=== PATIENT | female | born 1970 | race Caucasian/White ===

== ENCOUNTER → 2017-11-18 | Outpatient (CLI) | payer OTHER ==
[2017-11-18 12:28] LABS: BASO % 0.6 %; BASO ABS # 0.03 K/uL (0-0.2); EOS % 5.9 %; EOS ABS # 0.31 K/uL (0-0.5); HEMATOCRIT 43.4 % (37-47); HEMOGLOBIN 14.6 g/dL (12.0-16.0); IG# 0.01 K/uL (0.00-0.02); LYMPH % 22.9 %; MEAN CELL VOLUME 94.6 fL (80-100); MEAN CORPUSCULAR HEMOGLOBIN 31.8 pg (25-34); MEAN CORPUSCULAR HGB CONC 33.6 g/dl (32-36); MEAN PLATELET VOLUME 12.2 fL (7.4-10.4); MONO % 8.2 %; MONO ABS # 0.43 K/uL (0.11-0.59); NEUT % 62.2 %; NEUT ABS # 3.27 K/uL (1.4-6.5); PLATELET COUNT 260 K/uL (130-400); RED CELL DISTRIBUTION WIDTH CV 13.9 % (11.5-14.5); RED CELL DISTRIBUTION WIDTH SD 47.8 fL (36.4-46.3); WHITE BLOOD COUNT 5.25 K/uL (4.8-10.8)
[2017-11-18 15:09] LABS: ALT/SGPT 17 U/L (12-78); AST/SGOT 13 U/L (15-37); BLOOD UREA NITROGEN 13 mg/dl (7-18); CALCIUM 8.6 mg/dl (8.5-10.1); CARBON DIOXIDE 27 mmol/L (21-32); CREATININE 0.88 mg/dl (0.60-1.20); GLUCOSE 86 mg/dl (70-99); POTASSIUM 4.4 mmol/L (3.5-5.1); SODIUM 138 mmol/L (136-145)
[2017-11-18 15:19] LABS: ALKALINE PHOSPHATASE 44 U/L (45-117); TOTAL PROTEIN 7.3 gm/dl (6.4-8.2)
== END | disposition home or self-care (01) ==
LOC: C.LABPBG 08:59
PROVIDERS: ATTEND Family Medicine
DX: E03.9 Hypothyroidism, unspecified (principal); M79.89 Other specified soft tissue disorders; R53.83 Other fatigue; E55.9 Vitamin D deficiency, unspecified

== ENCOUNTER → 2017-12-29 | Outpatient (CLI) | payer OTHER | END | disposition home or self-care (01) | LOC: C.LAB1850 07:39 | PROVIDERS: ATTEND Family Medicine | DX: E03.9 Hypothyroidism, unspecified (principal) ==

== ENCOUNTER → 2018-02-14 | Outpatient (CLI) | payer OTHER ==
[2018-02-14 12:43] LABS: FOLLICLE STIMULAT HORMONE 7.79 IU/L
== END | disposition home or self-care (01) ==
LOC: C.LAB1850 09:58
PROVIDERS: ATTEND Obstetrics & Gynecology
DX: R23.2 Flushing (principal)

== ENCOUNTER 2021-12-31 05:54 | Observation (INO) ==
--- NOTE | 2021-12-22 10:47 | PAT Medication Instructions ---
Medication Instructions Date of Service December 22, 2021 Home Medications Medication Instructions Recorded hydroxyzine pamoate 25 mg capsule 25 mg PO TID PRN #10 cap 04/02/19 (Vistaril) meloxicam 15 mg tablet (Mobic) 15 mg PO DAILY PRN #30 tab 04/05/19 cholecalciferol (vitamin D3) 50 2,000 units PO BID #30 cap 05/29/19 mcg (2,000 unit) capsule fluticasone propionate 50 2 spray INTRANASAL DAILY #15.8 ml 11/09/21 mcg/actuation nasal spray,suspension (Flonase Allergy Relief) hydroxyzine pamoate 25 mg capsule (Vistaril) 25 mg PO TID PRN meloxicam 15 mg tablet (Mobic) 15 mg PO DAILY PRN cholecalciferol (vitamin D3) 50 mcg (2,000 unit) capsule 2,000 units PO BID clonazepam 0.5 mg tablet (Klonopin) 0.5 mg PO HS sertraline 100 mg tablet (Zoloft) 100 mg PO BID fluticasone propionate 50 mcg/actuation nasal spray,suspension (Flonase Allergy Relief) 2 spray INTRANASAL DAILY buspirone 15 mg tablet 15 mg PO TID levothyroxine 125 mcg tablet 125 mcg PO QAM oxcarbazepine 300 mg tablet (Trileptal) 300 mg PO BID ASK your surgeon for instructions meloxicam 15 mg tablet (Mobic) 15 mg PO DAILY PRN DO NOT take the morning of surgery cholecalciferol (vitamin D3) 50 mcg (2,000 unit) capsule 2,000 units PO BID Take morning of surgery With a small sip of water, OTHERWISE NOTHING TO EAT OR DRINK AFTER MIDNIGHT: hydroxyzine pamoate 25 mg capsule (Vistaril) 25 mg PO TID PRN(if needed) sertraline 100 mg tablet (Zoloft) 100 mg PO BID fluticasone propionate 50 mcg/actuation nasal spray,suspension (Flonase Allergy Relief) 2 spray INTRANASAL DAILY buspirone 15 mg tablet 15 mg PO TID levothyroxine 125 mcg tablet 125 mcg PO QAM oxcarbazepine 300 mg tablet (Trileptal) 300 mg PO BID Take evening before surgery hydroxyzine pamoate 25 mg capsule (Vistaril) 25 mg PO TID PRN(if needed) cholecalciferol (vitamin D3) 50 mcg (2,000 unit) capsule 2,000 units PO BID clonazepam 0.5 mg tablet (Klonopin) 0.5 mg PO HS sertraline 100 mg tablet (Zoloft) 100 mg PO BID fluticasone propionate 50 mcg/actuation nasal spray,suspension (Flonase Allergy Relief) 2 spray INTRANASAL DAILY buspirone 15 mg tablet 15 mg PO TID oxcarbazepine 300 mg tablet (Trileptal) 300 mg PO BID Other Notes If you have any questions please call us at [phone] or [phone] or [phone] or [phone]
--- NOTE | 2021-12-23 10:11 | Anesthesiology Consultation ---
Date of Service December 23, 2021 Assessment & Plan (1) Encounter for pre-operative examination: - check urine test am DOS. - Outpatient joint pathway: Per surgeon and patient, plan for outpatient joint program. Upon review of chart- patient is an acceptable candidate for Same Day Joint Program from anesthesia perspective pending perioperative course. Pending patient is motivated, has good support and surgeon's office completes Same Day Joint Program preop requirements- patient may proceed with outpatient JOON. - COVID screening: Per assessment on 12/23/2021: Travel screen negative, no known COVID-19 positive contacts or current COVID-19 related symptoms in past 2 weeks. Patient vaccinated. Surgeon arranging preop COVID testing, scheduled 12/29/2021. Awaiting results. Chart Review Chart Review: Acceptable Risk for Surgery and Patient seen in Pre Admission Testing Teaching & Discussion Pre-Anesthesia Teaching/Discussion Notes: Instructed NPO after midnight before surgery, except medications with 15 cc of water. Medication instructions provided according to the PAT guidelines. History Surgery Operation Date: 12/31/21 08:15 Proposed Procedures p OP: Right Total Hip Arthroplasty - Willie Dodge MD Height/Weight Height: 5 ft 4 in Weight: 68.4 kg Allergies Allergy/AdvReac Type Severity Reaction Status Date / Time sucralfate [From Carafate] Allergy Severe hives, lip Verified 12/21/21 15:27 swelling Sulfa (Sulfonamide Allergy Severe full body Verified 12/21/21 15:28 Antibiotics) hives morphine Allergy Intermediate facial Verified 12/21/21 15:29 flushing and rash Medications Home Medications Medication Instructions Recorded Confirmed Last Taken hydroxyzine pamoate 25 mg capsule 25 mg PO TID PRN #10 cap 04/02/19 12/21/21 Unknown (Vistaril) meloxicam 15 mg tablet (Mobic) 15 mg PO DAILY PRN #30 tab 04/05/19 12/21/21 Unknown cholecalciferol (vitamin D3) 50 2,000 units PO BID #30 cap 05/29/19 12/21/21 Unknown mcg (2,000 unit) capsule clonazepam 0.5 mg tablet (Klonopin) 0.5 mg PO HS tab 10/16/20 12/21/21 Unknown sertraline 100 mg tablet (Zoloft) 100 mg PO BID tab 01/13/21 12/21/21 Unknown fluticasone propionate 50 2 spray INTRANASAL DAILY #15.8 ml 11/09/21 12/21/21 Unknown mcg/actuation nasal spray,suspension (Flonase Allergy Relief) buspirone 15 mg tablet 15 mg PO TID 12/21/21 12/21/21 Unknown levothyroxine 125 mcg tablet 125 mcg PO QAM 12/21/21 12/21/21 Unknown oxcarbazepine 300 mg tablet 300 mg PO BID 12/21/21 12/21/21 Unknown (Trileptal) Past Medical History Medical History (Updated 12/23/21 @ 10:22 by Bridget Huff PA-C) ADHD (attention deficit hyperactivity disorder) Allergic rhinitis Anxiety and depression Genital herpes simplex type 1 infection History of anesthesia reaction "slow to wake up" denies re-intubation Hyperlipemia Hypothyroidism Osteoarthritis Patient denies h/o stroke, seizures, heart attack, heart failure, DM, HTN, blood clots or blood transfusions. Exercise / Class Metabolic Activity II 4-5 Yardwork/Stairs/Walk up hill (denies CP or SOB with 1 FOS) Past Family History Family History Father Hypertension Prostate cancer Mother Breast cancer Aunt Breast cancer Unknown Myocardial infarction Other Thyroid cancer Denies family history of Ovarian cancer Colorectal cancer Past Surgical History Surgical History History of dilatation and curettage History of esophagogastroduodenoscopy (EGD) History of partial hysterectomy d/t DUB, fibroids Past Anesthesia History No Family Hx of Anesthesia Complications History of PONV No Hx of PONV and No Hx of Motion Sickness Social History Smoking Status: Never smoker Do You Dip or Chew Tobacco: No Hx Alcohol Use: Yes Alcohol type: wine alcohol intake frequency: a few times a week Hx Substance Use: No substance use type: does not use Review of Systems Patient denies chest pain, shortness of breath, dyspnea on exertion, snoring, witnessed apneas, reflux, fever, chills, cough, wheezing, or palpitations. Physical Exam Vital Signs Vitals BP 113/71 P 62 TEMP 98.3 SP02 97% on RA RESP 17 Physical Full cervical extension range of motion without pain Full TMJ range of motion TMD 3.5 finger breaths Mallampati Score 3 Dentition: intact, denies missing, chipped or loose teeth, caps/crowns, implants or bridges Lungs: normal respiratory effort. Clear throughout to auscultation, no adventitious breath sounds Cardiac: regular rate and rhythm, no murmurs noted Carotid arteries: negative bruit bilat Extremities: no distal extremity edema Lab Results Anesthesia Preop Results Results Anesthesia Widget: WBC 5.66 K/uL (4.8-10.8) 12/23/21 Hgb 13.2 g/dL (12.0-16.0) 12/23/21 Hct 40.3 % (37-47) 12/23/21 Plt 256 K/uL (130-400) 12/23/21 Na 138 mmol/L (136-145) 12/23/21 K 4.0 mmol/L (3.5-5.1) 12/23/21 Cl 104 mmol/L (98-107) 12/23/21 CO2 28 mmol/L (21-32) 12/23/21 BUN 17 mg/dl (6-23) 12/23/21 Creat 0.71 mg/dl (0.6-1.2) 12/23/21 Glucose Level 80 mg/dl (70-99(Fasting)) 12/23/21 PT 10.3 Seconds (9.0-12.0) 12/23/21 PTT 25.0 Seconds (21.0-31.0) 12/23/21 INR 1.0 (0.9-1.1) 12/23/21 HA1c 5.2 % (4.5-5.6) 12/23/21 Urine Color Yellow 12/23/21 Urine Appearance Clear (Clear) 12/23/21 Urine pH 5.5 (4.5-7.5) 12/23/21 Urine Specific [place] 1.023 (1.000-1.030) 12/23/21 Urine Protein Negative (Negative) 12/23/21 Urine Glucose (UA) Negative (Negative) 12/23/21 Urine Ketones Trace (Negative) H 12/23/21 Urine Blood 1+ (Negative) H 12/23/21 Urine Nitrite Positive (Negative) A 12/23/21 Urine Bilirubin Negative (Negative) 12/23/21 Urine Urobilinogen Negative (Negative) 12/23/21 Urine Leukocyte Esterase Negative (Negative) 12/23/21 Urine WBC (Auto) 1-5 /hpf (0-5) 12/23/21 Urine RBC (Auto) 0-4 /hpf (0-4) 12/23/21 Urine Hyaline Casts (Auto) 1-5 /lpf (0-5) 12/23/21 Urine Epithelial Cells (Auto) 20-30 /lpf (0-5) H 12/23/21 Urine Bacteria (Auto) 4+ (Negative) H 12/23/21 Blood Type A Positive 12/23/21 Antibody Screen NEGATIVE 12/23/21 Lab Comments: Surgeon's office made aware of abnormal UA. Testing Electrocardiogram Date: 12/23/21 Sinus bradycardia, rate 56 bpm
--- NOTE | 2021-12-23 16:19 | History & Physical Report ---
Date of Service December 23, 2021 Assessment & Plan (1) Osteoarthritis of right hip joint due to dysplasia: Plan: PRE-OP Diagnosis: Right hip osteoarthritis; congenital hip dysplasia Planned Procedure: Right total hip arthroplasty Plan: Patient is scheduled to undergo this procedure at the [facility] following the outpatient joint pathway on December 31, 2021 Dr. Dodge. Risks complications of the procedure such as: Infection, bleeding, pain, scarring, nerve blood vessel damage, weakness, wound problems, stiffness, incomplete relief of symptoms, hardware failure, hardware loosening, wear, fracture, tendon or ligament injury, dislocation, leg length inequality, blood clots, embolism, heart attack, stroke and were explained to the patient at her visit with Dr. Dodge on December 18 and informed consent form the procedure was obtained. Patient also understands risks of proceeding with surgical intervention during the COVID-19 pandemic. Currently she is asymptomatic and understands that she will need to be tested prior to surgery. Patient is scheduled meet with anesthesia later this morning while there she will obtain a CBC with differential, complete metabolic panel, PT/INR, blood type and screen, urinalysis, urine culture and sensitivity, EKG, hemoglobin A1c and a nasal culture for MRSA. She states she is scheduled to meet with her primary care provider Dr. Cervantes this . During today's visit we disc ussed total hip precautions, reviewed the total hip packet, discussed lectures offered by [facility] in regards to joint replacement surgery via zoom. I sent prescriptions for oxycodone, Senokot, Zofran to her pharmacy today. She already has diclofenac sodium that she will use for postoperative pain inflammation relief. I also discussed DVT prophylaxis with baby aspirin twice daily for the first 30 days postoperatively. Patient states that she prefers to do her in-home physical therapy with [facility]. I provided her with orders to obtain a walker, raised toilet seat and shower chair and advised her to purchase a hip kit. Patient is scheduled to see me for 2-week postoperative follow-up on January 15 at 2:30 PM. At that visit we will provide her with an order for outpatient physical therapy as well as her rehab protocol. Patient verbalized understanding of all information provided during today's visit. She thanks for the care that she received. If she has questions or concerns that should arise prior to her surgery, she will contact clinic. History of Present Illness Chief Complaint: Chief Complaint: Right hip pain Primary Care Provider: Jackelyn Silva DO History of Present Illness (including history relevant to procedure): This 51-year-old female presents the clinic today for preoperative history and physical. Patient complains of right-sided hip pain for the past 5 to 6 years that has become progressively worse and is affecting her ability to ambulate and perform a specific activities of daily living. She experiences significant pain while navigating steps. Patient is failed all conservative measures including ultrasound-guided corticosteroid injections, physical therapy, the use of oral nonsteroidal agents and activity modification. Review Of Systems: A 12 point review of systems performed is unremarkable except for those things stated in the HPI past medical history. 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 She denies tobacco or illicit drug use Family history: Cancer Current Home Meds: (Last Updated 12/23 09:15) OXcarbazepine (OXcarbazepine 300 mg oral tablet) 300 mg PO bid busPIRone (busPIRone 15 mg oral tablet) cholecalciferol (Vitamin D3 2000 intl units oral capsule) 2 daily clonazePAM (KlonoPIN) cyanocobalamin (Vitamin B12) diclofenac topical (diclofenac 1% topical gel) 1 appl topical qid PRN: Pain not to exceed 16 grams/day/single joint of lower extremities diclofenac (diclofenac sodium 75 mg oral delayed release tablet) TAKE 1 TABLET BY MOUTH TWICE A DAY NEEDED FOR PAIN WITH FOOD hydrOXYzine (hydrOXYzine hydrochloride 25 mg oral tablet) levothyroxine (levothyroxine 125 mcg (0.125 mg) oral tablet) 125 mcg PO Daily loratadine (Claritin) ondansetron (Zofran 4 mg oral tablet) 4 mg PO q8h oxyCODONE (oxyCODONE 5 mg oral tablet) 10 mg PO q4h Initial RxPost op pain control senna (Senokot 8.6 mg oral tablet) 8.6 mg PO Daily PRN: as needed for constipation with plenty of water sertraline (Zoloft) Allergies Allergy/AdvReac Type Severity Reaction Status Date / Time sucralfate [From Carafate] Allergy Severe hives, lip Verified 12/21/21 15:27 swelling Sulfa (Sulfonamide Allergy Severe full body Verified 12/21/21 15:28 Antibiotics) hives morphine Allergy Intermediate facial Verified 12/21/21 15:29 flushing and rash Home Medications Medication Instructions Recorded Confirmed Type hydroxyzine pamoate 25 mg capsule 25 mg PO TID PRN #10 cap 04/02/19 12/21/21 Rx (Vistaril) meloxicam 15 mg tablet (Mobic) 15 mg PO DAILY PRN #30 tab 04/05/19 12/21/21 Rx cholecalciferol (vitamin D3) 50 2,000 units PO BID #30 cap 05/29/19 12/21/21 Rx mcg (2,000 unit) capsule clonazepam 0.5 mg tablet (Klonopin) 0.5 mg PO HS tab 10/16/20 12/21/21 History sertraline 100 mg tablet (Zoloft) 100 mg PO BID tab 01/13/21 12/21/21 History fluticasone propionate 50 2 spray INTRANASAL DAILY #15.8 ml 11/09/21 12/21/21 Rx mcg/actuation nasal spray,suspension (Flonase Allergy Relief) buspirone 15 mg tablet 15 mg PO TID 12/21/21 12/21/21 History levothyroxine 125 mcg tablet 125 mcg PO QAM 12/21/21 12/21/21 History oxcarbazepine 300 mg tablet 300 mg PO BID 12/21/21 12/21/21 History (Trileptal) Past Med/Surg History Medical History ADHD (attention deficit hyperactivity disorder) Allergic rhinitis Anxiety and depression Genital herpes simplex type 1 infection History of anesthesia reaction "slow to wake up" denies re-intubation Hyperlipemia Hypothyroidism Osteoarthritis Surgical History History of dilatation and curettage History of esophagogastroduodenoscopy (EGD) History of partial hysterectomy d/t DUB, fibroids Family History Father Hypertension Prostate cancer Mother Breast cancer Aunt Breast cancer Unknown Myocardial infarction Other Thyroid cancer Denies family history of Ovarian cancer Colorectal cancer Social History Smoking Status: Never smoker Second Hand Exposure: Yes; Hx Alcohol Use: Yes Alcohol type: wine Alcohol Intake Frequency Comment: 2 GLASSES Hx Substance Use: No Preferred Language: Togolese Communication Ability: Effective Visual Impairment: No Limitations Hearing Ability: Normal Master Certified Rv Technician Required: No Beliefs That Will Affect Care: None marital status: Current Living Situation: Alone current occupational status: employed 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 How many Children do You have: 2 How many Children do You have Comment: 2 sons Feels Safe at Home: Yes Childhood Exposure to Second-Hand Smoke: Yes Dental Care, Regularly: Yes Physical Activity Frequency: 3-4 Times per Week Seatbelt Use: always Sunscreen Use: Yes Assistive Devices: Glasses Review of Systems All systems reviewed & are unremarkable except as noted in Subjective Physical Exam Physical Exam: Physical Exam: (relevant to the procedure, including heart and lung evaluation) General: Alert and oriented x3 with proper grooming and hygiene Eyes: Pupils are equal reactive to light with accommodation. Extraocular movements are intact Throat: Deferred due to COVID-19 precautions Cardiac: Regular rate and rhythm with no murmurs or gallops appreciated Lungs: Clear to auscultation throughout no wheezing, rales or rhonchi Abdomen: Nonobese, nondistended, nontender with NABS Extremities: Right hip; logroll test positive. Stinchfield test positive. Scour impingement test positive. Straight leg raise test positive. Lection is limited to 100 degrees, external rotation 35 and internal rotation of 5 degrees. Patient is neurovascular intact in her right lower extremity but does walk with a slight antalgic gait Neuro: Radial nerves II through XII intact no motor or sensory deficit Skin: Normal in appearance with no open skin areas or discharge Results & Data ([facility]) Diagnostic Findings Studies (relevant to the procedure): X-rays done today, personally interpreted by me include AP pelvis, false-profile, and cross-table lateral views of the right hip. These are compared with her prior films done back in January of 2020. There has been interval narrowing of the superolateral joint space, now near [id number].
[2021-12-31] MEDS ORDERED: ACETAMINOPHEN 500 MG TAB PO SCH (06:00)
[2021-12-31] MEDS ORDERED: dexAMETHasone 4 MG TAB PO SCH (06:00)
[2021-12-31] MEDS ORDERED: TRANEXAMIC ACID 1,000 MG **IV Pre-op IV SCH (06:00)
[2021-12-31] MEDS ORDERED: LR 60ML/HR IV SCH (06:00)
[2021-12-31] MEDS ORDERED: TRANEXAMIC ACID 1,000 MG **IV Intra-op IV SCH (06:00)
[2021-12-31] MEDS ORDERED: FAMOTIDINE 20 MG TAB PO SCH (06:00)
[2021-12-31] MEDS ORDERED: Scopolamine 1 MG TDSY TD SCH (06:00)
[2021-12-31] MEDS ORDERED: ceFAZolin 2000MG 2,000 MG/15 ML SYR IV SCH (06:00)
[2021-12-31] MEDS ORDERED: traMADol HCL 50 MG TABLET PO SCH (06:00)
[2021-12-31] MEDS ORDERED: ROPIVACAINE 0.5% HCL/PF 150 MG, BUPIVACAINE 0.75% MPF 20 ML, EPINEPHrine 0.15 MG, Ketor... INFIL SCH (06:00)
[2021-12-31] MEDS ORDERED: ROPIVACAINE 0.5% 5 MG/ML 30 ML VIAL ONE (06:27)
[2021-12-31] MEDS ORDERED: LIDOCAINE 2%/EPINEPHRINE 1:200,000 20 ML SDV ONE (06:27)
--- NOTE | 2021-12-31 07:56 | History & Physical Bridge Note ---
Date of Service December 31, 2021 History & Physical Bridge Note I have examined the patient, reviewed the History & Physical and in the interval since the performance of the History & Physical I have noted the following changes of clinical significance: no changes noted
[2021-12-31] MEDS ORDERED: ORTHO JOINT ANESTHETIC ONE (08:14)
[2021-12-31] MEDS ORDERED: MIDAZOLAM HCL 1 MG/ML 2ML VIAL ONE ×2 (08:35→09:10)
[2021-12-31] MEDS ORDERED: fentaNYL citrate 100 MCG/2 ML VIAL ONE (08:36)
[2021-12-31] MEDS ORDERED: ePHEDrine sulfate 50 MG/ML AMP IV PRN (08:48)
[2021-12-31] MEDS ORDERED: ONDANSETRON INJ 2 MG/ML 2 ML VIAL IV PRN ×2 (08:48→12:56)
[2021-12-31] MEDS ORDERED: fentaNYL citrate 100 MCG/2 ML VIAL IV PRN (08:48)
[2021-12-31] MEDS ORDERED: ATROPINE SULFATE 0.1 MG/ML 10ML SYR IV PRN (08:48)
[2021-12-31] MEDS ORDERED: BUPIVACAINE 0.5 % 5 MG/1 ML PF 10ML VIAL ONE (09:04)
[2021-12-31] MEDS ORDERED: PROPOFOL IV EMULSION 10 MG/ML 20 ML VIAL IV ONE ×2 (09:38→10:31)
[2021-12-31] MEDS ORDERED: GLYCOPYRROLATE 0.2 MG/ML VIAL ONE (11:20)
--- NOTE | 2021-12-31 11:29 | Operative Report ---
Post Operative Report Pre & Post Diagnosis Operation Date: 12/31/21 08:15 Pre-Op Diagnosis: Right Hip Osteoarthritis Post-Op Diagnosis: Right Hip Osteoarthritis, Proximal Femur Fracture I identified the patient and participated in the time-out.: Yes Procedure Operation Date: 12/31/21 08:15 Actual Procedures p Right Total Hip Arthroplasty(Right) - Willie Dodge MD p Open Reduction Internal Fixation with Cables, Proximal Femur Fracture(Right) - Willie Dodge MD Surgeon P Echo DELGADILLO Parole Supervisor Mel VIRK Estimated Blood Loss 150 Findings Consistent with Post-Op Diagnosis see operative report Specimens see operative report Drains none Complications none Disposition Accompanied Patient To Recovery: Yes Indications This 51-year-old female presented to the office with complaints of persisting right hip pain. She had tried conservative care measures without improvement. She elected to proceed with surgical intervention after being educated about potential risks and outcomes. Preoperative imaging was obtained. Description of Procedure Patient was administered a spinal anesthetic and then taken to the operating becki m where she was given sedation. She was prepped and draped in the usual sterile fashion. Please see Dr. Dodge's operative report for specifics of the procedure. I was present for the entire case from initial patient positioning through final wound closure. Assistance was provided in tissue retraction, hemostasis, trial implant placement, final implant placement, and final wound closure. Patient was taken to the recovery room in satisfactory condition. I attest to the content of the Intraoperative Record and any orders documented therein. Any exceptions are noted below.
--- NOTE | 2021-12-31 11:39 | Operative Report ---
Post Operative Report Pre & Post Diagnosis Operation Date: 12/31/21 08:15 Pre-Op Diagnosis: Right Hip Osteoarthritis, Developmental Dyplasia of the Hip Post-Op Diagnosis: Right Hip Osteoarthritis, Developmental Dyplasia of the Hip, Proximal Femur Fracture I identified the patient and participated in the time-out.: Yes Procedure Operation Date: 12/31/21 08:15 Actual Procedures p Right Total Hip Arthroplasty(Right) 22 modifier should be added to the case due to increased complexity from her developmental dysplasia of the hip p Open Reduction Internal Fixation with Cables, Proximal Femur Fracture(Right) - Willie Dodge MD Surgeon Willie Dodge MD Meat Passer Yrn Leal PA-C. No resident or fellow was available to assist. Estimated Blood Loss 150 Findings See Below Total hip arthroplasty was performed through posterior approach. She had abnormal anatomy of her proximal femur with coxa valga. Acetabulum was quite shallow and retroverted consistent with a dysplastic hip. While broaching the femur with the smallest of femoral component patient sustained a small intraoperative fracture of the calcar. 2 Dall-Miles cables were placed and the surgery proceeded from there without incident. Specimens Right femoral head. Complications While broaching the femur with the smallest of femoral component patient sustained a small intraoperative fracture of the calcar. 2 Dall-Miles cables were placed and the surgery proceeded from there without incident. Indications 51-year-old female with right hip osteoarthritis in the setting of developmental dysplasia of the hip refractory to conservative management. X-rays demonstrate [id number] disease. I had a long discussion with her about the risks and benefits of surgery, alternatives, and expected outcomes. She understood that due to her abnormal anatomy she is at increased risk for complications. Also due to her young age she is at risk for needing a revision surgery due to wear. After reviewing all the risks and benefits surgery she elected to proceed. All questions were answered. Informed consent was signed. Description of Procedure Patient was identified in the preoperative holding area where her surgical site was marked. She was given epidural by anesthesia and brought back to main operating room for was moved on the operating table and rolled up carefully in the lateral decubitus position. Axillary roll was placed. All bony prominences were padded. Assessment of leg lengths was performed. She was about 1 cm short on the right compared with the left. All bony prominences were padded. Perioperative antibiotics were administered. She was prepped and draped in the usual sterile fashion. Prior to incision a multidisciplinary timeout was called. All in the room in agreement. We began by making a 16 cm long incision for a posterior approach of the hip. I dissected down the subcutaneous tissues to the level of the fascia. The fascia was incised in line with the incision. Charnley bow was placed. Trochanteric bursa and fat were was reflected off of the piriformis and short external rotators. Upper border of the quadratus femoris was released. The piriformis and short external rotators were then dissected off the posterior aspect of the hip along with capsule. Hip was then dislocated. Abnormal anatomy of coxa valga was noted to the proximal femur. We made our femoral neck cut a pproximately 8 mm above the lesser trochanter as was our preoperative plan. The acetabulum was then exposed. Inspection of the acetabulum demonstrated the patient to have shallow acetabulum and retroversion consistent with a dysplastic hip. Contents of the cotyloid fossa were removed with electrocautery. I then started with a 42 mm reamer. I medialized her acetabulum significantly down to the quadrilateral plate in order to deepen her socket as I sequentially reamed up to a size 50 mm cup. We now had a more normal depth acetabulum with circumferential bleeding cancellous bone. The acetabulum was irrigated out and a 50 mm [place] wound care technician wang cup was then impacted down into position with approximately 20 degrees of anteversion and 40 degrees of lateral opening. Osteophytes along the anterior acetabular wall were removed. A +4 trial liner for a 32 mm femoral head was placed in order to increase her leg length so it would be symmetric with the other side. Next we turned our attention towards the femur. The box osteotome was used to remove the lateral neck. The intramedullary guide was placed. I did get somewhat tight towards the distal aspect. I then started broaching with the size 8 Corail broach. This is the smallest size Corail stem. On her preoperative plan this appeared to have good fit. However as we are tapping the broach down she was noted to have a small crack developed along the medial calcar. Upon further inspection we were able to visualize that the crack was actually a small U-shaped fracture of the medial aspect of the calcar that did not appear to extend distally. However due to concern for microscopic, nonvisible crack extending distally, I elected to switch to a Larimer stem in order to get more distal fixation and bypass this calcar fracture. We opened up the 01 reamer and reamed the intramedullary canal. We then broached with the size 1 Larimer broach which is the smallest sized implant This is also a little bit tight and was starting to gap the crack. Therefore the broach was removed and cancellous bone from the proximal femur was removed with a rattail as well as a curette. In order to prevent further crack propagation I placed a single Dall-Safeway Safety Step cable above the lesser trochanter tightened down to approximately 100 pounds of torque. The cables then cramped. I was unable to place the size 1 Larimer broach down and not gap the fracture. It sat about 5 mm above the femoral neck cut which we had also templated to be acceptable leg length. A high offset neck and a +1.5 mm offset 32 mm femoral head was initially used. We checked our center of the head to a lesser trochanter distance and it was just slightly short. Hip was reduced and she had partial correction of her leg lengths. Still was just a couple millimeters short however. She had a good stability exam with no impingement in extension and external rotation. With the hip flexed up to 90 degrees she could be internally rotated approximately 50 degrees before levering out of the acetabulum. We then brought in x-ray to check the proximal femur. A single AP x-ray was done and demonstrated that the cable was in appropriate position. The fracture line was not visible on the x- ray. I was happy with the position of the acetabulum as well as the size of the femoral broach. At this point the femoral broach was removed and the trial acetabular liner was removed. The real size 50 out of millimeter diameter and 32 mm inner diameter +4 Ultrex polyethylene acetabular liner was opened up and impacted down into the acetabulum. We checked the locking mechanism and it had engaged appropriately. Next the proximal femur was reexposed. Out of abundance of caution I elected to place a second cable just below the lesser trochanter. This was done without difficulty. Again it was tensioned approximately 100 pounds of torque crimped and then cut. The real size 1 Larimer stem with a high offset was opened up and impacted down into position. It sat at the same level as the broach. In order to restore leg lengths I then trialed with a +5 femoral head. She now had symmetric leg lengths. Her stability exam was similar to previously which I was very happy with. Therefore the hip was dislocated the femoral head trial was removed and the real size 32 mm ceramic femoral head with a +5 offset was opened up and tapped down of the trunnion. Hip was atraumatically reduced. We then began to close. Wound was irrigated out with copious amounts of dilute Betadine solution followed by normal saline. The periarticular injection cocktail was then placed. Piriformis short external rotators as well as a posterior capsular flap was repaired with #2 Vicryl through bone tunnels in the posterior aspect of the greater trochanter. Fascia was run with dilute #1 PDS suture. Subcutaneous layer was closed with #1 PDS. Deep dermal layer was closed with 2-0 Vicryl in running fashion. Skin was closed with Dermabond and Zipline. Silverlon dressin g was placed. Patient's sedation was then lifted, she was rolled supine and transferred to the hospital bed, and transferred to the recovery room in stable condition. Postoperative course: Patient will be admitted overnight for pain control and monitoring. Postoperative x-rays will be obtained. She will be toe-touch weightbearing initially after surgery. Aspirin for DVT prophylaxis. Posterior hip precautions. I attest to the content of the Intraoperative Record and any orders documented therein. Any exceptions are noted below.
--- NOTE | 2021-12-31 11:44 | XRay Report ---
XR hip RT 1V CLINICAL HISTORY: PT LAT RT SIDE UP/DR WANTS 1VW PELVIS/1VW HIP W/STEM IN OR 7. COMPARISON STUDY: 12/23/2021 TECHNIQUE: Single intraoperative film of the right hip FINDINGS: The patient is status post right hip surgery with a metallic femoral template in place. Uli tabular component is present along with a cerclage wire surrounding the proximal femoral shaft. IMPRESSION: 1. Single intraoperative film with right femoral prosthesis template in place. ACT 112: Negative or not required by law. Electronically signed by: Jericho Gutierrez M.D. 12/31/2021 11:43 AM
--- NOTE | 2021-12-31 12:13 | Anesthesiology Progress Note ---
Date of Service December 31, 2021 Anesthesia Post Procedure Vital Signs Vital Signs: Temp Pulse Pulse Resp BP Pulse Ox 12/31/21 12:00 59 L 20 108/58 L 96 12/31/21 11:50 59 L 17 103/59 L 100 12/31/21 11:40 61 17 112/58 L 100 12/31/21 11:30 57 L 17 107/53 L 100 12/31/21 11:24 98.1 F 55 L 11 L 111/62 98 12/31/21 06:34 98.2 F 65 18 141/45 H 99 Transfer of Care Handoff Completed per policy Notes Mental Status: alert / awake / arousable and participated in evaluation Patient Amnestic to Procedure: Yes Nausea / Vomiting: adequately controlled Pain: adequately controlled Airway Patency, RR, SpO2: stable & adequate BP & HR: stable & adequate Hydration State: stable & adequate Neuraxial Anesthesia: was administered and sensory block is resolving Anesthetic Complications: no major complications apparent and Pt Satisfied with anesthetic care
--- NOTE | 2021-12-31 12:26 | XRay Report ---
XR pelvis 1-2V routine CLINICAL HISTORY: post op R total hip COMPARISON: Pelvis radiograph December 23, 2021. FINDINGS: Alignment of the right hip arthroplasty is anatomic. No periprosthetic fracture is identif ied. Acetabular screw is noted. There are 2 cerclage wires. No unexpected radiopaque foreign bodies. IMPRESSION: Expected findings following total right hip arthroplasty. ACT 112: Negative or not required by law. Electronically signed by: Jaciel Bobo M.D. 12/31/2021 12:25 PM
[2021-12-31] MEDS ORDERED: SODIUM CHLORIDE 0.9% 1000ML 1,000 ML IV SCH (12:56)
[2021-12-31] MEDS ORDERED: hydrOXYzine HCl 25 MG TAB PO PRN (12:56)
[2021-12-31] MEDS ORDERED: oxyCODONE HCL IR 5 MG TAB (IMMEDIATE RELEASE) PO PRN (12:56)
[2021-12-31] MEDS ORDERED: HYDROmorphone INJ 0.5 MG/0.5 ML SYR IV PRN (12:56)
[2021-12-31] MEDS ORDERED: bisacodyL 10 MG SUPP PR PRN (12:56)
[2021-12-31] MEDS ORDERED: clonazePAM 0.5 MG TAB PO PRN (12:56)
[2021-12-31] MEDS ORDERED: NALOXONE HCL 0.4 MG/1 ML VIAL/CARP IV PRN (12:56)
[2021-12-31] MEDS ORDERED: MAGNESIUM HYDROXIDE SUSP 30 ML UDC PO PRN (12:56)
[2021-12-31] MEDS ORDERED: diphenhydrAMINE 50 MG/ML VIAL IV PRN (12:56)
[2021-12-31] MEDS: busPIRone 15 MG TAB PO SCH ×2 (14:53→20:55)
[2021-12-31] MEDS: ACETAMINOPHEN 500 MG TAB PO SCH ×2 (14:53→20:55)
[2021-12-31] MEDS: KETOROLAC 30 MG/ML VIAL IV SCH ×2 (14:54→20:18)
[2021-12-31] MEDS ORDERED: Scopolamine CHECK PATCH PLACEMENT SCH (16:00)
[2021-12-31] MEDS: ceFAZolin 2000MG 2,000 MG/15 ML SYR IV SCH (18:19)
[2021-12-31] MEDS: FERROUS GLUCONATE 324 MG TAB PO SCH (18:19)
[2021-12-31] MEDS: ASCORBIC ACID 500 MG TAB PO SCH (18:19)
[2021-12-31] MEDS: OXcarbazepine 150 MG TABLET PO SCH (20:55)
[2021-12-31] MEDS: ASPIRIN 325 MG ECTAB PO SCH (20:56)
[2021-12-31] MEDS: DOCUSATE SODIUM 100 MG CAP PO SCH (20:56)
[2021-12-31] MEDS: SERTRALINE HCL 100 MG TABLET PO SCH (20:56)
[2021-12-31] MEDS ORDERED: SENNA 8.6 MG TAB PO SCH (21:00)
[2022-01-01] MEDS: KETOROLAC 30 MG/ML VIAL IV SCH ×2 (02:32→09:30)
[2022-01-01] MEDS: ceFAZolin 2000MG 2,000 MG/15 ML SYR IV SCH (02:32)
[2022-01-01] MEDS: ACETAMINOPHEN 500 MG TAB PO SCH ×2 (06:03→13:25)
[2022-01-01] MEDS ORDERED: LEVOTHYROXINE SODIUM 125 MCG TABLET PO SCH (06:30)
[2022-01-01 06:52] LABS: Eosinophils # (auto) 0.01 K/uL (0-0.5); Eosinophils % (auto) 0.1 %; Hematocrit (blood only) 28.6 % (37-47); Hemoglobin 9.6 g/dL (12.0-16.0); Immature Granulocytes # (auto) 0.02 K/uL (0.00-0.02); Immature Granulocytes % (auto) 0.2 %; Lymphocytes # (auto) 0.97 K/uL (1.2-3.4); Lymphocytes % (auto) 10.9 %; Mean Corpuscular Hemoglobin 31.5 pg (25-34); Mean Corpuscular Hgb Conc 33.6 g/dL (32-36); Mean Corpuscular Volume 93.8 fL (80-100); Mean Platelet Volume 11.2 fL (7.4-10.4); Monocytes # (auto) 0.88 K/uL (0.11-0.59); Monocytes % (auto) 9.9 %; Neutrophils # (auto) 7.03 K/uL (1.4-6.5); Neutrophils % (auto) 78.9 %; Platelet Count 221 K/uL (130-400); RDW Coefficient of Variation 14.1 % (11.5-14.5); RDW Standard Deviation 48.9 fL (36.4-46.3); Red Blood Count 3.05 M/uL (4.2-5.4); White Blood Count 8.91 K/uL (4.8-10.8)
[2022-01-01 07:23] LABS: BUN Creatinine Ratio 25.3 (10-20); Calcium 7.5 mg/dl (8.5-10.1); Creatinine Clr Calc Pharmacy 87.1 ml/min; Est GFR (African American) 108.5 ml/min; Est GFR (Non-African American) 93.6 ml/min; Potassium 3.8 mmol/L (3.5-5.1)
[2022-01-01] MEDS ORDERED: dexAMETHasone 10 MG in SYRINGE 0 ML IV SCH (08:00)
[2022-01-01] MEDS: FERROUS GLUCONATE 324 MG TAB PO SCH (08:31)
[2022-01-01] MEDS: ASCORBIC ACID 500 MG TAB PO SCH (08:32)
[2022-01-01] MEDS: OXcarbazepine 150 MG TABLET PO SCH (08:32)
[2022-01-01] MEDS: busPIRone 15 MG TAB PO SCH ×2 (08:33→13:25)
[2022-01-01] MEDS: SERTRALINE HCL 100 MG TABLET PO SCH (08:33)
[2022-01-01] MEDS: ASPIRIN 325 MG ECTAB PO SCH (08:34)
[2022-01-01] MEDS: DOCUSATE SODIUM 100 MG CAP PO SCH (08:34)
[2022-01-01] MEDS ORDERED: FLUTICASONE PROPIONATE NA SPR 16 GM BTL NAE SCH (09:00)
[2022-01-01] MEDS ORDERED: MULTIVITAMIN TAB PO SCH (09:00)
--- NOTE | 2022-01-01 10:35 | Orthopedic Progress Note ---
Date of Service January 01, 2022 Assessment & Plan (1) S/P total hip arthroplasty: (2) Fracture, proximal femur: Plan: PT/OT Touchdown weightbearing x6 weeks Keep Silverlon dressing intact Pain control with p.o. medication DVT prophylaxis with 81 mg aspirin twice daily and FILIBERTO stockings Ice with easy wrap Total hip precautions Patient will most likely need some form of inpatient rehab due to her living situation and her inability to transition without two-person assistance. A consult was placed for case management to evaluate the patient and get her established at an inpatient rehab facility. Patient is scheduled to follow-up at [facility] orthopedics in 2 weeks. With questions please contact the clinic at [phone] Admission and Anticipated Discharge Date Admission Date: December 31, 2021 Subjective This 51-year-old female is day 1 status post right total hip arthroplasty and open reduction internal fixation for a proximal femur fracture. Patient is doing fairly well this morning. She states her pain is well controlled with p.o. pain medication. She states that she has great difficulty using the walker and required 2 person assistance to transition from her bed to the chair. Patient is concerned because she lives alone in an apartment that requires her to ascend 13 stairs. Otherwise, she denies chest pain, shortness of breath, fever, chills, sweats, lethargy, numbness or tingling in her right lower extremity. She also denies nausea, vomiting or diarrhea and states she has been able to void without issue. Review of Systems Review of Systems: All systems reviewed & are unremarkable except as noted in Subjective Physical Exam Physical Exam: Right hip: Silverlon dressing is clean dry and intact. Patient has significant difficulty performing active straight leg raise test due to the pain that she experiences over the IT band. Passive straight leg raise test causes no pain. Patient is able to actively dorsi and plantarflex her foot without difficulty. She experiences slight tension with very light passive internal and external hip rotation. Quad strength is 2 of 5. Patient is neurovascular intact in right lower extremity. Results & Data ([facility]) Vital Signs (Past 12 Hours) Vital Signs Temp Pulse Resp BP Pulse Ox 01/01/22 07:22 37.0 C 74 18 109/68 99 01/01/22 02:29 36.9 C 62 16 97/59 L 99 Diagnostic Findings Laboratory Results WBC 8.91 K/uL (4.8-10.8) 01/01/22 06:27 RBC 3.05 M/uL (4.2-5.4) L 01/01/22 06:27 Hgb 9.6 g/dL (12.0-16.0) L 01/01/22 06:27 Hct 28.6 % (37-47) L 01/01/22 06:27 MCV 93.8 fL (80-100) 01/01/22 06:27 MCH 31.5 pg (25-34) 01/01/22 06:27 MCHC 33.6 g/dL (32-36) 01/01/22 06:27 RDW Std Deviation 48.9 fL (36.4-46.3) H 01/01/22 06:27 RDW Coeff of Carlos Eduardo 14.1 % (11.5-14.5) 01/01/22 06:27 Plt Count 221 K/uL (130-400) 01/01/22 06:27 MPV 11.2 fL (7.4-10.4) H 01/01/22 06:27 Immature Gran % (Auto) 0.2 % 01/01/22 06:27 Neut % (Auto) 78.9 % 01/01/22 06:27 Lymph % (Auto) 10.9 % 01/01/22 06:27 Piute % (Auto) 9.9 % 01/01/22 06:27 Eos % (Auto) 0.1 % 01/01/22 06:27 Baso % (Auto) 0.0 % 01/01/22 06:27 Neut # (Auto) 7.03 K/uL (1.4-6.5) H 01/01/22 06:27 Lymph # (Auto) 0.97 K/uL (1.2-3.4) L 01/01/22 06:27 Piute # (Auto) 0.88 K/uL (0.11-0.59) H 01/01/22 06:27 Eos # (Auto) 0.01 K/uL (0-0.5) 01/01/22 06:27 Baso # (Auto) 0.00 K/uL (0-0.2) 01/01/22 06:27 Immature Gran # (Auto) 0.02 K/uL (0.00-0.02) 01/01/22 06:27 Sodium 136 mmol/L (136-145) 01/01/22 06:27 Potassium 3.8 mmol/L (3.5-5.1) 01/01/22 06:27 Chloride 106 mmol/L (98-107) 01/01/22 06:27 Carbon Dioxide 26 mmol/L (21-32) 01/01/22 06:27 Anion Gap 4 (3-11) 01/01/22 06:27 BUN 19 mg/dl (6-23) 01/01/22 06:27 Creatinine 0.75 mg/dl (0.6-1.2) 01/01/22 06:27 Est Cr Clr Drug Dosing 87.1 ml/min 01/01/22 06:27 Est GFR ( Amer) 108.5 ml/min 01/01/22 06:27 Est GFR (Non-Af Amer) 93.6 ml/min 01/01/22 06:27 BUN/Creatinine Ratio 25.3 (10-20) H 01/01/22 06:27 Glucose 103 mg/dl (70-99(Fasting)) H 01/01/22 06:27 Calcium 7.5 mg/dl (8.5-10.1) L 01/01/22 06:27 POC Ur Test NEG (NEG) 12/30/21 06:20 Impressions Hip X-Ray 12/31/21 08:15 XR hip RT 1V CLINICAL HISTORY: PT LAT RT SIDE UP/DR WANTS 1VW PELVIS/1VW HIP W/STEM IN OR 7. COMPARISON STUDY: 12/23/2021 TECHNIQUE: Single intraoperative film of the right hip FINDINGS: The patient is status post right hip surgery with a metallic femoral template in place. Acetabular component is present along with a cerclage wire surrounding the proximal femoral shaft. IMPRESSION: 1. Single intraoperative film with right femoral prosthesis template in place. ACT 112: Negative or not required by law. Electronically signed by: Jericho Gutierrez M.D. 12/31/2021 11:43 AM Pelvis X-Ray 12/31/21 11:45 XR pelvis 1-2V routine CLINICAL HISTORY: post op R total hip COMPARISON: Pelvis radiograph December 23, 2021. FINDINGS: Alignment of the right hip arthroplasty is anatomic. No periprosthetic fracture is identified. Acetabular screw is noted. There are 2 cerclage wires. No unexpected radiopaque foreign bodies. IMPRESSION: Expected findings following total right hip arthroplasty. ACT 112: Negative or not required by law. Electronically signed by: Jaciel Bobo M.D. 12/31/2021 12:25 PM
--- NOTE | 2022-01-01 12:44 | Discharge Summary ---
Date of Service January 01, 2022 Admission HPI Per Admitting Provider History of Present Illness (including history relevant to procedure): This 51-year-old female presents the clinic today for preoperative history and physical. Patient complains of right-sided hip pain for the past 5 to 6 years that has become progressively worse and is affecting her ability to ambulate and perform a specific activities of daily living. She experiences significant pain while navigating steps. Patient is failed all conservative measures including ultrasound-guided corticosteroid injections, physical therapy, the use of oral nonsteroidal agents and activity modification. Review Of Systems: A 12 point review of systems performed is unremarkable except for those things stated in the HPI past medical history. 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 She denies tobacco or illicit drug use Family history: Cancer Current Home Meds: (Last Updated 12/23 09:15) OXcarbazepine (OXcarbazepine 300 mg oral tablet) 300 mg PO bid busPIRone (busPIRone 15 mg oral tablet) cholecalciferol (Vitamin D3 2000 intl units oral capsule) 2 daily clonazePAM (KlonoPIN) cyanocobalamin (Vitamin B12) diclofenac topical (diclofenac 1% topical gel) 1 appl topical qid PRN: Pain not to exceed 16 grams/day/single joint of lower extremities diclofenac (diclofenac sodium 75 mg oral delayed release tablet) TAKE 1 TABLET BY MOUTH TWICE A DAY NEEDED FOR PAIN WITH FOOD hydrOXYzine (hydrOXYzine hydrochloride 25 mg oral tablet) levothyroxine (levothyroxine 125 mcg (0.125 mg) oral tablet) 125 mcg PO Daily loratadine (Claritin) ondansetron (Zofran 4 mg oral tablet) 4 mg PO q8h oxyCODONE (oxyCODONE 5 mg oral tablet) 10 mg PO q4h Initial RxPost op pain control senna (Senokot 8.6 mg oral tablet) 8.6 mg PO Daily PRN: as needed for constipation with plenty of water sertraline (Zoloft) Admission Exam Per Admitting Provider Physical Exam: (relevant to the procedure, including heart and lung evaluation) General: Alert and oriented x3 with proper grooming and hygiene Eyes: Pupils are equal reactive to light with accommodation. Extraocular movements are intact Throat: Deferred due to COVID-19 precautions Cardiac: Regular rate and rhythm with no murmurs or gallops appreciated Lungs: Clear to auscultation throughout no wheezing, rales or rhonchi Abdomen: Nonobese, nondistended, nontender with NABS Extremities: Right hip; logroll test positive. Stinchfield test positive. Scour impingement test positive. Straight leg raise test positive. Lection is limited to 100 degrees, external rotation 35 and internal rotation of 5 degrees. Patient is neurovascular intact in her right lower extremity but does walk with a slight antalgic gait Neuro: Radial nerves II through XII intact no motor or sensory deficit Skin: Normal in appearance with no open skin areas or discharge Principal Diagnosis Right hip osteoarthritis; Congenital hip dysplasia Discharge Exam Right hip: Silverlon dressing is clean dry and intact. Patient has significant difficulty performing active straight leg raise test due to the pain that she experiences over the IT band. Passive straight leg raise test causes no pain. Patient is able to actively dorsi and plantarflex her foot without difficulty. She experiences slight tension with very light passive internal and external hip rotation. Quad strength is 2 of 5. Patient is neurovascular intact in right lower extremity. Discharge Data Allergies Allergy/AdvReac Type Severity Reaction Status Date / Time sucralfate [From Carafate] Allergy Severe hives, lip Verified 12/30/21 14:13 swelling Sulfa (Sulfonamide Allergy Severe full body Verified 12/30/21 14:13 Antibiotics) hives morphine Allergy Intermediate facial Verified 12/30/21 14:13 flushing and rash Procedures Performed Operation Date: 12/31/21 08:15 Actual Procedures p Right Total Hip Arthroplasty(Right) - Willie Dodge MD p Open Reduction Internal Fixation with Cables, Proximal Femur Fracture(Right) - Willie Dodge MD Hospital Course (1) S/P total hip arthroplasty: (2) Fracture, proximal femur: Patient was initially scheduled to be an outpatient total joint however she sustained a nondisplaced fracture to the proximal femur from the femoral implant. This required cerclage wires to be placed. Earlier this morning patient required 2 person assist to transition from her bed to her chair. I advised the patient that she may need to go to a rehab facility for PT. Is contacted by occupational medicine and was advised that the patient did okay with PT and OT and will have family help at home to ascend her steps into her apartment. She would prefer to be discharged home today and will have her in- home PT/OT. Patient also has her prescriptions that were provided at her preop appointment. She will be scheduled for 2-week follow-up in our clinic as previously instructed. If she has questions or concerns I advised her to contact clinic. PT/OT Touchdown weightbearing x6 weeks Keep Silverlon dressing intact Pain control with p.o. medication DVT prophylaxis with 81 mg aspirin twice daily and FILIBERTO stockings Ice with easy wrap Total hip precautions Plan on discharge home today with in-home PT/OT. Help from family. Patient is scheduled to follow-up at [facility] in 2 weeks. With questions please contact the clinic at [phone] Total Time Total Time Spent Total Time Spent (In Minutes): 20 minutes Discharge Plan Discharge Items Patient Disposition: Home - Home Health Services Reason For Visit: Right Hip Osteoarthritis Discharge Diagnosis: Right hip osteoarthritis Activity: As commented below Lifting: None Bathing: Keep incision dry Bathing Comment: May shower tomorrow Sexual Activity: Wait until after follow-up appointment Exercise/Sports: Wait until after follow-up appointment Driving/Machine Use: No driving until cleared by research quality assurance specialist Weightbearing: Right toe touch Weightbearing Comment: Weightbearing with walker assistance Non-emergency contact: Surgeon Call non-emergency contact if: you have any medication questions, your temperature is above 101.5, your wound has increased drainage and your wound pain has increased [facility] (as per surgeon's office ) Jackelyn Silva DO [Primary Care Provider] - 01/20/22 8:20 am Diet: Regular Addtl Attending Provider Instructions: Post-operative Instructions Dear Patient and Family/Friends, Before you are discharged from the hospital, it is important to know what to expect when you get home after surgery. To that end, we have created this sheet of discharge instructions which covers many commonly asked questions. Make sure you go through this sheet in its entirety with your nurse before you are discharged. Please note that we will go over the specifics of your surgery and recovery when you return for your first post-operative visit. Sincerely, Dr. Dodge Aspirin 81 mg: Take 1 tablet twice daily for the first 30 days postoperatively for blood clot prevention. Take all other previously prescribed medications as directed. Pain Expect to be in a fair amount of pain after surgery. Remember, our goal is not to eliminate your pain, but to make it tolerable. It is a good idea to stay ahea d of your pain by taking the medications you were prescribed once you get home. Typically, the pain starts improving 3-7 days after surgery. You should start weaning off the narcotic pain medication (oxycodone, hydrocodone, hydromorphone, morphine) as soon as your pain improves. Please call our office if your pain is not adequately controlled. Ice Ice your operative site at least 5 times a day for 15-30 minutes at a time. Make sure you have a thin cloth between the ice or cooling unit and your skin to prevent adams bite. This is especially important if you received a nerve block. Continue icing your operative site for the first 5-7 days after surgery, then as needed. Diet/Nausea/Vomiting Start by drinking clear liquids and eating crackers. If you can tolerate this, then you may resume your normal diet. If you feel nauseated or vomit, take Zofran/ondansetron (if prescribed). Please call our office if you have intractable nausea or vomiting, or, if after hours, you may go to the Emergency Room for help. Constipation Constipation is a common side effect of narcotic pain medication. If you have not had a bowel movement within 2 days after surgery, we recommend purchasing an over the counter laxative such as Milk of Magnesia, Dulcolax, or Miralax from a local pharmacy, and taking it as instructed. Call our clinic if any questions. Nerve block The anesthesia team sometimes places a nerve block to help with post-operative pain control. This results in significant numbness and inability to move the extremity. The nerve block usually wears off in 8-12 hours, but sometimes can last up to 24 hours. Please call our office if you are still unable to move your extremity after 24 hours, unless you received a pain pump to take home. Nerve blocks typically wear off quickly, so start taking pain medication as soon as you start feeling soreness near your surgical site. Weight bearing and Range of Motion. Do not bear any weight through your operative extremity immediately after surgery. If you had upper extremity surgery, do not lift anything with that arm. If you are in a knee brace, keep it locked in place until your follow-up. We will discuss your weight bearing, range of motion, and lifting restrictions in detail at your first post-operative appointment. Continuous Passive Motion (CPM) Machine If you were prescribed a CPM machine, it will start after your first post- operative appointment, at which time we will give you instructions on the range of motion settings and duration of treatment Physical therapy You will be given a prescription for physical therapy or occupational therapy at your first post-operative appointment. Typically, patients start therapy within 1 week of surgery Wound care and showering We will inspect your wound at your first post-operative visit, and may do a dressing change at that time. Most patients will be in a water-proof dressing that is removed 14 days after surgery. It is normal to see some dried blood on the dressing. Do not remove your dressing, paper strips or sutures yourself unless you are given permission. Showering is allowed the day after surgery. Do not scrub or remove any dressings. The wound should not be submerged underwater (i.e. in a bathtub or pool) until 4 weeks after surgery FILIBERTO stockings If you were given white stockings, these are to be worn at all times except to shower (on both legs) for the first 2 weeks after surgery. Driving You may not drive while taking narcotic pain medication or while in a cast, splint, sling or brace. You, the patient, need to make the final determination about when you are safe to drive, however, the earliest you may consider driving after surgery is below: Hand/Wrist/Elbow Surgery: 3 days Shoulder Surgery: 2 weeks Hip,/Knee/Ankle Surgery: 4 weeks Fracture repair: 6 weeks Return to Work Your return to work depends on what surgery was done and what type of work you do. Please bring any paperwork your employer needs completed to your first post-operative visit. Also, bring a description of your job duties, as this helps us to understand what risks you may face at work. Travel Avoid long distance travel (greater than 1 hour) in airplanes and cars for the first 6 weeks after surgery. If you must travel, you need to have a Doppler ultrasound done before you travel to rule out a blood clot in your legs. Follow-up You should have a follow-up appointment already scheduled 1-2 days after surgery. If not, please contact our office to make this appointment before you leave the hospital. When to call the office It is normal to have swelling and bruising in the limb that was operated on. This will improve with time. It is also normal to have fevers for the first 2 days after surgery. Reasons you should call your doctor include: Uncontrolled pain; Nausea, vomiting, or constipation that does not improve with medication; Fevers over 101.5, chills, sweats; Drainage or bleeding from the wound; Foul odor; Spreading areas of redness; Any other concerns Pending Studies at Discharge: No Stand-Alone Forms: [facility] [employer], Smoking Cessation Medications and DC Order Prescriptions: Continued hydroxyzine pamoate [Vistaril] 25 mg capsule 25 mg PO TID PRN (Reason: anxiety) Qty: 10 RF: 0 fluticasone propionate [Flonase Allergy Relief] 50 mcg/actuation spray,suspension 2 spray intranasal DAILY Qty: 15.8 RF: 2 clonazepam [Klonopin] 0.5 mg tablet 0.5 mg PO HS PRN (Reason: Anxiety) RF: 0 sertraline [Zoloft] 100 mg tablet 100 mg PO BID RF: 0 meloxicam [Mobic] 15 mg tablet 15 mg PO DAILY PRN (Reason: hip pain) Qty: 30 RF: 0 cholecalciferol (vitamin D3) 2,000 unit capsule 2,000 units PO BID Qty: 30 RF: 5 multivitamin Tablet 1 tab PO QAM RF: 0 buspirone 15 mg Tablet 15 mg PO TID RF: 0 levothyroxine 125 mcg tablet 125 mcg PO QAM RF: 0 oxcarbazepine [Trileptal] 300 mg Tablet 300 mg PO BID RF: 0 Discharge Orders: Discharge Order (Routine); Ordered 01/01/22 Ordered By: Jorge Torres/Other Patient Handouts: Hip Precautions, After Hip Replacement: Home Safety Admission Data Admit Date/Time: 12/31/21 12:48 Attending Provider: Willie Dodge Admit Provider: Willie Dodge Primary Care Provider: Jackelyn Silva. Other Providers: [facility]
== END 2022-01-01 14:19 | disposition home health service (06) ==
LOC: 3E 05:54 → ASU 05:54